=== PATIENT | male | born 1985 | race Caucasian/White ===

== ENCOUNTER 2017-08-17 17:04 | Inpatient (IN) | payer MEDICAID ==
[~2017-08-17] VITALS: Ht 175.3 cm; Wt 81.2 kg
[2017-08-17 18:18] LABS: BASOPHILS % (AUTO) 0.7 % (0.0-2.0); EOSINOPHILS % (AUTO) 1.3 % (1.0-6.0); HEMOGLOBIN 17.1 g/dL (13.5-17.5); LYMPHOCYTES # (AUTO) 2.7 K/uL (1.0-4.8); LYMPHOCYTES % (AUTO) 23.7 % (22.0-44.0); MEAN CORPUSCULAR HEMOGLOBIN 29.2 pg (26.0-34.0); MEAN CORPUSCULAR HGB CONC 34.1 G/dL (31.0-37.0); MEAN CORPUSCULAR VOLUME 86 fL (80-100); MONOCYTES # (AUTO) 0.9 K/uL (0.1-1.0); MONOCYTES % (AUTO) 8.1 % (2.0-9.0); NEUTROPHILS # (AUTO) 7.6 K/uL (1.8-7.7); NEUTROPHILS % (AUTO) 66.2 % (40.0-70.0); PLATELET COUNT (AUTO) 282 K/uL (150-450); RED BLOOD CELL COUNT(AUTO) 5.83 MIL/uL (4.50-5.90); RED CELL DISTRIBUTION WIDTH 13.5 % (11.5-14.5)
[2017-08-17 18:29] LABS: ANION GAP 11 mmol/L (8-16); CALCIUM, TOTAL 8.8 mg/dL (8.8-10.5); CARBON DIOXIDE 25 mmol/L (22-29); CHLORIDE 99 mmol/L (98-107); CREATININE 1.18 mg/dL (0.60-1.30); GLOMERULAR FILTR. RATE CALC > 60 mL/min (>60); GLUCOSE,RANDOM 97 mg/dL (70-110); POTASSIUM 3.7 mmol/L (3.5-5.1); SODIUM SERUM 135 mmol/L (136-145); UREA NITROGEN, BLOOD 17 mg/dL (7-18)
[2017-08-17 18:37] LABS: ALANINE AMINOTRANSFERASE 20 U/L (12-78); ALBUMIN 4.3 g/dL (3.4-5.0); ALKALINE PHOSPHATASE 96 U/L (46-116); ASPARTATE AMINOTRANSFERASE 20 U/L (15-37); BILIRUBIN,TOTAL 0.9 mg/dL (0.1-1.0); TOTAL PROTEIN, SERUM 8.2 g/dL (6.4-8.2)
[2017-08-17 19:08] LABS: AMPHET/METH SCREEN,URINE POSITIVE (NEGATIVE); BARBITURATE SCREEN, URINE NEGATIVE (NEGATIVE); BENZODIAZEPINES SCREEN,URINE NEGATIVE (NEGATIVE); CANNABINOID SCREEN,URINE POSITIVE (NEGATIVE); COCAINE SCREEN,URINE POSITIVE (NEGATIVE); METHADONE SCREEN, URINE NEGATIVE (NEGATIVE); OPIATE SCREEN,URINE NEGATIVE (NEGATIVE); PHENCYCLIDINE SCREEN,URINE NEGATIVE (NEGATIVE)
[2017-08-17] MEDS ORDERED: ZOLPIDEM TARTRATE 10 MG TABLET PO PRN (22:30)
[2017-08-18 00:42] VITALS: BP 131/89
[2017-08-18 08:02] VITALS: BP 127/69
[2017-08-18 08:11] LABS: CHOL/HDL RATIO 3.5 (4.2-7.3)
[2017-08-18] MEDS ORDERED: IBUPROFEN 400 MG TABLET PO PRN (10:00)
[2017-08-18] MEDS ORDERED: ACETAMINOPHEN 325 MG TABLET PO PRN (10:00)
[2017-08-18 16:05] VITALS: BP 132/72
[2017-08-18] MEDS: HALOPERIDOL 5 MG TABLET PO PRN (16:36)
[2017-08-18] MEDS: LORazepam 2 MG TABLET PO PRN (16:36)
[2017-08-19 06:33] VITALS: BP 103/68
[2017-08-19 08:40] VITALS: BP 134/78
[2017-08-19 09:22] LABS: HEMOGLOBIN A1C 5.5 % (4.5-6.2)
[2017-08-19 09:43] LABS: CHOL/HDL RATIO 3.5 (4.2-7.3); THYROID STIMULATING HORMONE 0.48 uIU/mL (0.36-3.74)
[2017-08-19 16:00] VITALS: BP 120/80
[2017-08-19] MEDS: LORazepam 2 MG TABLET PO PRN (17:50)
[2017-08-20 05:37] VITALS: BP 117/74
[2017-08-20] MEDS: LORazepam 2 MG TABLET PO PRN ×2 (05:38→17:07)
[2017-08-20 07:49] LABS: BASOPHILS % (AUTO) 0.4 % (0.0-2.0); EOSINOPHILS % (AUTO) 3.3 % (1.0-6.0); HEMATOCRIT 45.3 % (41-53); HEMOGLOBIN 15.9 g/dL (13.5-17.5); LYMPHOCYTES # (AUTO) 2.5 K/uL (1.0-4.8); LYMPHOCYTES % (AUTO) 30.3 % (22.0-44.0); MEAN CORPUSCULAR HEMOGLOBIN 29.8 pg (26.0-34.0); MEAN CORPUSCULAR HGB CONC 35.1 G/dL (31.0-37.0); MEAN CORPUSCULAR VOLUME 85 fL (80-100); MONOCYTES # (AUTO) 0.7 K/uL (0.1-1.0); MONOCYTES % (AUTO) 8.1 % (2.0-9.0); NEUTROPHILS # (AUTO) 4.7 K/uL (1.8-7.7); NEUTROPHILS % (AUTO) 57.9 % (40.0-70.0); PLATELET COUNT (AUTO) 220 K/uL (150-450); RED BLOOD CELL COUNT(AUTO) 5.34 MIL/uL (4.50-5.90); RED CELL DISTRIBUTION WIDTH 13.1 % (11.5-14.5)
[2017-08-20 08:15] VITALS: BP 129/70
[2017-08-20 08:25] LABS: ALANINE AMINOTRANSFERASE 27 U/L (12-78); ALBUMIN 3.7 g/dL (3.4-5.0); ALKALINE PHOSPHATASE 86 U/L (46-116); ANION GAP 9 mmol/L (8-16); ASPARTATE AMINOTRANSFERASE 15 U/L (15-37); BILIRUBIN,TOTAL 0.7 mg/dL (0.1-1.0); CALCIUM, TOTAL 8.3 mg/dL (8.8-10.5); CARBON DIOXIDE 26 mmol/L (22-29); CHLORIDE 104 mmol/L (98-107); CREATININE 1.06 mg/dL (0.60-1.30); GLOMERULAR FILTR. RATE CALC > 60 mL/min (>60); GLUCOSE,RANDOM 85 mg/dL (70-110); POTASSIUM 3.9 mmol/L (3.5-5.1); SODIUM SERUM 139 mmol/L (136-145); TOTAL PROTEIN, SERUM 6.8 g/dL (6.4-8.2); UREA NITROGEN, BLOOD 17 mg/dL (7-18)
[2017-08-20] MEDS: RisperiDONE 3 MG TABLET PO SCH ×2 (09:11→17:07)
[2017-08-20] MEDS: HALOPERIDOL 5 MG TABLET PO PRN (09:11)
[2017-08-20] MEDS ORDERED: HALOPERIDOL DECANOATE 100 MG/ML VIAL IM ONE (13:45)
[2017-08-20 16:02] VITALS: BP 110/61
[2017-08-21 06:21] VITALS: BP 121/74
[2017-08-21] MEDS: RisperiDONE 3 MG TABLET PO SCH ×2 (08:11→16:20)
[2017-08-21] MEDS: HALOPERIDOL 5 MG TABLET PO PRN ×2 (08:11→16:21)
[2017-08-21] MEDS: LORazepam 2 MG TABLET PO PRN ×2 (08:11→16:21)
[2017-08-21 08:29] VITALS: BP 132/81
[2017-08-21 16:00] VITALS: BP 121/70
[2017-08-22 00:42] VITALS: BP 124/69
[2017-08-22] MEDS: RisperiDONE 3 MG TABLET PO SCH ×2 (08:09→16:31)
[2017-08-22 08:20] VITALS: BP 144/68
[2017-08-22 16:05] VITALS: BP 131/70
[2017-08-22] MEDS: LORazepam 2 MG TABLET PO PRN (16:31)
[2017-08-22] MEDS: HALOPERIDOL 5 MG TABLET PO PRN (16:31)
[2017-08-23 04:10] VITALS: BP 117/69
[2017-08-23 08:22] VITALS: BP 119/64
[2017-08-23] MEDS ORDERED: HALOPERIDOL DECANOATE 50 MG/ML VIAL IM ONE (09:00)
[2017-08-23] MEDS: RisperiDONE 3 MG TABLET PO SCH ×2 (09:58→17:27)
[2017-08-23 16:05] VITALS: BP 115/69
[2017-08-23] MEDS: LORazepam 2 MG TABLET PO PRN (17:27)
[2017-08-24 03:23] VITALS: BP 126/74
[2017-08-24 08:15] VITALS: BP 120/71
[2017-08-24] MEDS: RisperiDONE 3 MG TABLET PO SCH ×2 (08:38→17:00)
[2017-08-24 16:00] VITALS: BP 123/74
[2017-08-24] MEDS: LORazepam 2 MG TABLET PO PRN (17:00)
[2017-08-25 08:14] VITALS: BP 125/79
[2017-08-25] MEDS: RisperiDONE 3 MG TABLET PO SCH ×2 (08:46→16:39)
[2017-08-25 16:00] VITALS: BP 140/77
[2017-08-25] MEDS: HALOPERIDOL 5 MG TABLET PO PRN (16:39)
[2017-08-25] MEDS: LORazepam 2 MG TABLET PO PRN (16:39)
[2017-08-26 06:22] VITALS: BP 124/88
[2017-08-26 08:23] VITALS: BP 139/73
[2017-08-26] MEDS: RisperiDONE 3 MG TABLET PO SCH ×2 (08:48→16:14)
[2017-08-26] MEDS: HALOPERIDOL 5 MG TABLET PO PRN ×2 (08:48→16:14)
[2017-08-26] MEDS: LORazepam 2 MG TABLET PO PRN ×2 (08:48→16:14)
[2017-08-26 16:00] VITALS: BP 128/79
[2017-08-27 02:34] VITALS: BP 111/69
[2017-08-27 08:39] VITALS: BP 128/77
[2017-08-27] MEDS: RisperiDONE 3 MG TABLET PO SCH ×2 (08:54→17:29)
[2017-08-27 16:37] VITALS: BP 124/70
[2017-08-27] MEDS: LORazepam 2 MG TABLET PO PRN (17:29)
[2017-08-27] MEDS: HALOPERIDOL 5 MG TABLET PO PRN (17:29)
[2017-08-28 05:23] VITALS: BP 122/79
[2017-08-28 08:24] VITALS: BP 100/68
[2017-08-28] MEDS: RisperiDONE 3 MG TABLET PO SCH ×2 (08:46→16:44)
[2017-08-28 16:05] VITALS: BP 127/71
[2017-08-28] MEDS: HALOPERIDOL 5 MG TABLET PO PRN (16:44)
[2017-08-28] MEDS: LORazepam 2 MG TABLET PO PRN (16:44)
[2017-08-29 06:46] VITALS: BP 108/69
[2017-08-29 08:14] VITALS: BP 106/62
[2017-08-29] MEDS: RisperiDONE 3 MG TABLET PO SCH ×2 (08:56→16:08)
[2017-08-29 16:00] VITALS: BP 123/71
[2017-08-29] MEDS: LORazepam 2 MG TABLET PO PRN (16:08)
[2017-08-29] MEDS: HALOPERIDOL 5 MG TABLET PO PRN (16:08)
[2017-08-30 06:35] VITALS: BP 108/68
[2017-08-30 08:16] VITALS: BP 121/74
[2017-08-30] MEDS: RisperiDONE 3 MG TABLET PO SCH ×2 (09:19→16:15)
[2017-08-30] MEDS: LORazepam 2 MG TABLET PO PRN (16:15)
[2017-08-30 17:24] VITALS: BP 117/72
[2017-08-31 06:52] VITALS: BP 123/73
[2017-08-31 08:33] VITALS: BP 128/76
[2017-08-31] MEDS: RisperiDONE 3 MG TABLET PO SCH ×2 (08:50→16:47)
[2017-08-31 16:00] VITALS: BP 122/68
[2017-08-31] MEDS: HALOPERIDOL 5 MG TABLET PO PRN (16:47)
[2017-08-31] MEDS: LORazepam 2 MG TABLET PO PRN (16:47)
[2017-09-01 06:32] VITALS: BP 109/64
[2017-09-01] MEDS ORDERED: RISP3TAB44 PO (07:52)
[2017-09-01 08:41] VITALS: BP 129/84
[2017-09-01] MEDS: RisperiDONE 3 MG TABLET PO SCH (08:44)
[2017-09-18] MEDS ORDERED: HALOPERIDOL DECANOATE 100 MG/ML VIAL IM SCH (09:00)
== END 2017-09-01 14:33 | disposition home or self-care (01) | DRG 750 ==
LOC: EMS 17:05 → B3A 23:00
PROVIDERS: ADMIT Psychiatry & Neurology Psychiatry; ATTEND Psychiatry & Neurology Psychiatry
DX: F20.0 Paranoid schizophrenia (principal); E87.1 Hypo-osmolality and hyponatremia; E78.5 Hyperlipidemia, unspecified; D72.829 Elevated white blood cell count, unspecified; F19.10 Other psychoactive substance abuse, uncomplicated; F12.90 Cannabis use, unspecified, uncomplicated; F17.210 Nicotine dependence, cigarettes, uncomplicated; Z59.0 Homelessness; Z71.51 Drug abuse counseling and surveillance of drug abuser
CPT/HCPCS: 83036; 84443; 87081; 99285; G0480; J1631

== ENCOUNTER 2018-02-11 09:11 | Inpatient (IN) | payer SELFPAY ==
[~2018-02-11] VITALS: Ht 175.3 cm; Wt 83.9 kg
[~2018-02-11 09:11] MED LIST: RISP3TAB44 PO
[2018-02-11 11:07] LABS: BASOPHILS % (AUTO) 0.3 % (0.0-2.0); EOSINOPHILS % (AUTO) 0.1 % (1.0-6.0); HEMATOCRIT 51.5 % (41-53); HEMOGLOBIN 17.8 g/dL (13.5-17.5); LYMPHOCYTES # (AUTO) 1.2 K/uL (1.0-4.8); LYMPHOCYTES % (AUTO) 11.9 % (22.0-44.0); MEAN CORPUSCULAR HEMOGLOBIN 29.6 pg (26.0-34.0); MEAN CORPUSCULAR HGB CONC 34.6 G/dL (31.0-37.0); MEAN CORPUSCULAR VOLUME 86 fL (80-100); MONOCYTES # (AUTO) 0.6 K/uL (0.1-1.0); NEUTROPHILS # (AUTO) 8.2 K/uL (1.8-7.7); NEUTROPHILS % (AUTO) 81.7 % (40.0-70.0); PLATELET COUNT (AUTO) 292 K/uL (150-450); RED BLOOD CELL COUNT(AUTO) 6.02 MIL/uL (4.50-5.90); RED CELL DISTRIBUTION WIDTH 13.2 % (11.5-14.5)
[2018-02-11 11:14] LABS: BENZODIAZEPINES SCREEN,URINE NEGATIVE (NEGATIVE); CANNABINOID SCREEN,URINE POSITIVE (NEGATIVE); COCAINE SCREEN,URINE NEGATIVE (NEGATIVE); METHADONE SCREEN, URINE NEGATIVE (NEGATIVE); OPIATE SCREEN,URINE NEGATIVE (NEGATIVE)
[2018-02-11 11:14] LABS: ANION GAP 9 mmol/L (8-16); CALCIUM, TOTAL 8.9 mg/dL (8.8-10.5); CARBON DIOXIDE 24 mmol/L (22-29); CHLORIDE 104 mmol/L (98-107); CREATININE 0.98 mg/dL (0.60-1.30); GLOMERULAR FILTR. RATE CALC > 60 mL/min (>60); GLUCOSE,RANDOM 120 mg/dL (70-110); POTASSIUM 3.6 mmol/L (3.5-5.1); SODIUM SERUM 137 mmol/L (136-145); UREA NITROGEN, BLOOD 7 mg/dL (7-18)
[2018-02-11 11:20] LABS: ALANINE AMINOTRANSFERASE 23 U/L (12-78); ALBUMIN 4.6 g/dL (3.4-5.0); ALKALINE PHOSPHATASE 99 U/L (46-116); ASPARTATE AMINOTRANSFERASE 15 U/L (15-37); BILIRUBIN,TOTAL 0.6 mg/dL (0.1-1.0); TOTAL PROTEIN, SERUM 8.3 g/dL (6.4-8.2)
[2018-02-11 11:29] LABS: AMPHET/METH SCREEN,URINE NEGATIVE (NEGATIVE); BARBITURATE SCREEN, URINE NEGATIVE (NEGATIVE)
[2018-02-11 11:40] LABS: PHENCYCLIDINE SCREEN,URINE NEGATIVE (NEGATIVE)
[2018-02-11] MEDS ORDERED: LORazepam 2 MG TABLET PO PRN (15:45)
[2018-02-11] MEDS ORDERED: HALOPERIDOL 5 MG TABLET PO PRN (15:45)
[2018-02-11] MEDS ORDERED: ZOLPIDEM TARTRATE 10 MG TABLET PO PRN (15:45)
[2018-02-11 18:15] VITALS: BP 145/101
[2018-02-11] MEDS ORDERED: NICOTINE 14 MG/24 HOUR PATCH TD PRN (21:15)
[2018-02-11] MEDS ORDERED: ONDANSETRON HCL 4 MG TABLET PO PRN (21:15)
[2018-02-11] MEDS ORDERED: PETROLATUM,WHITE 71 GM JELLY TP PRN (21:15)
[2018-02-11] MEDS ORDERED: IBUPROFEN 400 MG TABLET PO PRN (21:15)
[2018-02-11] MEDS ORDERED: MAG HYDROX/AL HYDROX/SIMETH ES 30 ML SUSPENSION UDCUP PO PRN (21:15)
[2018-02-11] MEDS ORDERED: LOPERAMIDE HCL 2 MG CAPSULE PO PRN (21:15)
[2018-02-11] MEDS ORDERED: ACETAMINOPHEN 325 MG TABLET PO PRN (21:15)
[2018-02-11] MEDS ORDERED: CloNIDine HCL 0.1 MG TABLET PO PRN (21:15)
[2018-02-11] MEDS ORDERED: GuaiFENesin/D-METHORPHAN [SUGAR-FREE] 200-20MG/10 ML SYRUP UDCUP PO PRN (21:15)
[2018-02-11] MEDS ORDERED: DOCUSATE SODIUM 100 MG CAPSULE PO PRN (21:15)
[2018-02-11] MEDS ORDERED: MAGNESIUM HYDROXIDE SUSPENSION 30 ML UDCUP PO PRN (21:15)
[2018-02-11] MEDS ORDERED: ALBUTEROL SULFATE HFA 90 MCG/PUFF 8 GM INHALER IH PRN (21:15)
[2018-02-12 07:13] LABS: HEMOGLOBIN A1C 5.6 % (4.5-6.2)
[2018-02-12 07:29] LABS: CHOL/HDL RATIO 3.3 (4.2-7.3); THYROID STIMULATING HORMONE 0.68 uIU/mL (0.36-3.74)
[2018-02-12] MEDS: RisperiDONE 3 MG TABLET PO SCH ×2 (09:00→17:01)
[2018-02-12 11:35] VITALS: BP 135/83
[2018-02-12 11:39] LABS: BILIRUBIN,URINE NEGATIVE (NEGATIVE); GLUCOSE, URINE (UA) NEGATIVE (NEGATIVE); KETONES,URINE 40 mg/dL (NEGATIVE); LEUKOCYTE ESTERASE ,URINE NEGATIVE (NEGATIVE); NITRATE,URINE NEGATIVE (NEGATIVE); OCCULT BLOOD,URINE NEGATIVE (NEGATIVE); PH,URINE 6.5 (5.0-8.0); PROTEIN,URINE NEGATIVE (NEGATIVE)
[2018-02-12 12:01] LABS: AMORPHOUS SEDIMENT,UR Few /LPF (None Seen); APPEARANCE,URINE HAZY (CLEAR); BACTERIA,URINE None Seen /HPF (None Seen); RBC,URINE None Seen /HPF (0-2); WBC,URINE None Seen /HPF (0-5)
[2018-02-12 22:21] VITALS: BP 132/76
[2018-02-13] MEDS: RisperiDONE 3 MG TABLET PO SCH ×2 (09:24→16:24)
[2018-02-13 09:56] VITALS: BP 130/72
[2018-02-13 20:52] VITALS: BP 128/89
[2018-02-14] MEDS: RisperiDONE 3 MG TABLET PO SCH ×2 (08:12→16:55)
[2018-02-14 09:39] VITALS: BP 150/91
[2018-02-14] MEDS ORDERED: RISP3 PO (13:09)
== END 2018-02-14 17:00 | disposition home or self-care (01) | DRG 885 ==
LOC: EMS 09:12 → B3A 16:39 → 3EI 17:25
PROVIDERS: ADMIT Psychiatry & Neurology Psychiatry; ATTEND Psychiatry & Neurology Psychiatry
DX: F20.0 Paranoid schizophrenia (principal); F17.200 Nicotine dependence, unspecified, uncomplicated; F12.90 Cannabis use, unspecified, uncomplicated; E78.5 Hyperlipidemia, unspecified; F19.10 Other psychoactive substance abuse, uncomplicated; G47.00 Insomnia, unspecified; F14.90 Cocaine use, unspecified, uncomplicated; Z59.0 Homelessness; Z91.19 Patient's noncompliance with other medical treatment and regimen; Z71.51 Drug abuse counseling and surveillance of drug abuser; Z71.6 Tobacco abuse counseling
CPT/HCPCS: 83036; 84443; G0480